=== PATIENT | female | born 1965 | race Caucasian/White ===

== ENCOUNTER 2024-12-21 08:35 | Emergency (ER) | payer OTHER, BC, SELFPAY ==
[2024-12-21 09:10] VITALS: BP 138/87; PULSE 77; RESP 19; TEMP 36.6; O2SAT 98; BMI 40.1
--- NOTE | 2024-12-21 09:18 | PC.NURSE ---
SPOKE WITH MARLYN BLACK FROM PHARMACY ABOUT LATEX ALLERGY INTERACTION WITH TDAP. MARLYN STATES OK TO GIVE.
[2024-12-21] MEDS: TET/DIPHTH/PERT-ADULT 0.5ML SYRINGE 0.5 ML IM (09:20)
--- NOTE | 2024-12-21 09:47 | ED_ITS ---
Discharge Plan Disposition Patient Disposition: Home, Self-Care Condition: Good Prescriptions Prescriptions: New amoxicillin-pot clavulanate 875-125 mg Tablet 1 tab PO Q12H 7 Days Qty: 14 0RF mupirocin 2 % ointment 1 applic topical TID 10 Days Qty: 22 0RF Rx Instructions: apply to area as directed Referrals Follow up/Referrals: Provider,Referral, MD [Primary Care Provider] - See instructions Activity Restrictions/Add. Instructions Additional Instructions/Restrictions: Clean area well with antibacterial soap and water Leave area open to air when possible at home Use topical ointment as directed Take oral antibiotics as prescribed Follow up with your Family Doctor or Podiatry if symptoms persist Clinical Impressions Clinical Impression: Foot injury Instructions Patient Instructions: DI for Abrasion, Amoxicillin and Clavulanic Acid, Mupirocin Print Language Print Language: Bulgarian Discharge ED Provider: Linda Schwartz [facility] [place] HPI General Stated complaint: needs tetanus, laceration on L ankle Mode of Arrival: Ambulatory Source of Information: Patient Limitations: No Limitations Time Seen by Provider: 12/21/24 09:47 Description of Symptoms (Recalled from Triage Doc. by RN): PATIENT C/O WOUND TO RIGHT ANKLE AFTER HITTING IT ON A DR[employer]OL[employer] DOOR AT A GAS STATION LAST NIGHT. PATIENT STATES SHE NEEDS TDAP AND POSSIBLY ANTIBIOTICS HEENT Symptoms (Recalled from RN notes): No Resp Symptoms (Recalled from RN notes): No Skin Symptoms (Recalled from RN notes): Yes MS Symptoms (Recalled from RN notes): No Functional Status (Recalled from RN notes): WNL History of Present Illness Provider Complaint: Patient states that she was at a local gas station last night and her right heel area was struck by a brian dirty door and it caused an abrasion on the back of her heel area and felt like she may have a small puncture wound States that she came in to get a tetanus shot and worried that she may need antibiotics because the door was so dirty and brian Related Data Previous Rx's ?Medication ?Instructions ?Recorded amoxicillin 875 mg-potassium 1 tab PO Q12H 7 days #14 tabs 12/21/24 clavulanate 125 mg tablet mupirocin 2 % topical ointment 1 applic topical TID 10 days #22 12/21/24 grams Allergies Allergy/AdvReac Type Severity Reaction Status Date / Time latex Allergy Rash Verified 12/21/24 09:16 Worker's Comp Is this a Worker's Comp case?: No [facility] Disclaimer: The information contained in this section may have been updated after the patient was seen, as this information can be updated by other users. Medical History (Updated 12/21/24 @ 09:57 by Linda Schwartz APRN) No significant past medical history Social History Smoking Status: Unknown if ever smoked alcohol intake: never current occupational status: employed Travel in the last 8 weeks: None ROS Obtained: Yes All systems reviewed & no additional complaints except as documented and Yes Systems reviewed as appropriate & no additional complaints except as documented Constitutional Constitutional: Reports system reviewed and no additional complaints, except as documented and Reports as per HPI ENT Ears, Nose, Mouth, and Throat: Reports system reviewed and no additional complaints, except as documented and Reports as per HPI Cardiovascular Cardiovascular: Reports system reviewed and no additional complaints, except as documented and Reports as per HPI Respiratory Respiratory: Reports system reviewed and no additional complaints, except as documented and Reports as per HPI Gastrointestinal Gastrointestingal: Reports system reviewed and no additional complaints, except as documented and as per HPI Integumentary/Breasts Skin/Breast: Reports system reviewed and no additional complaints, except as documented and Reports as per HPI Comments: abrasion and small puncture wound to back of right heel area Physical Exam General General appearance: alert and in no apparent distress Respiratory Respiratory exam: Present normal lung sounds bilaterally; Absent respiratory distress or wheezes Cardiovascular Cardiovascular exam: Present regular rate, normal rhythm and normal heart sounds Abdominal Exam Abdominal exam: Present soft and normal bowel sounds; Absent distention or tenderness Expanded Lower Extremity Exam Right: Ankle image: 2 1. abrasion noted with one area possibly small puncture wound, no active bleeding however does have some mild redness Neurological Exam Neurological exam: Present alert, oriented X3 and normal gait Medical Decision Making Medical Records Screening: Per USPSTF and CDC recommendations, given the prevalence of disease in our region, it is our hospital?s policy to screen for HIV and viral Hepatitis for all patients aged 18 and over and those with ongoing risk factors. Lakhwinder Inquiry Pt receiving controlled substance: No Lakhwinder was queried for this patient: No Vital Signs: 12/21/24 09:10 Temperature 97.8 F Temperature Source Oral Pulse Rate [Left Brachial] 77 Respiratory Rate 19 Blood Pressure [Left Arm] 138/87 Blood Pressure Mean [Left Arm] 104 Blood Pressure Source [Left Arm] Automatic Cuff Blood Pressure Position [Left Arm] Sitting 02 Sat by Pulse Oximetry 98 Oxygen Delivery Method Room Air Orders (Tests/Meds): ED MEDICATIONS Discontinued Medications Generic Name Dose Route Start Last Admin Trade Name Freq PRN Reason Stop Dose Admin Tetanus/Reduced Diphtheria/Acell Pertussis 0.5 ml 12/21/24 09:16 12/21/24 09:20 Tet/Diphth/Pert-Adult 0.5ml Syringe IM 12/21/24 09:17 0.5 ml .ONCE ONE Administration
[2024-12-21 09:58] VITALS: BP 138/87; PULSE 77; RESP 19; TEMP 36.6; O2SAT 98
== END 2024-12-21 10:04 | disposition home or self-care (01) ==
PROVIDERS: Emergency Provider Nurse Practitioner
DX: S99.921A Unspecified injury of right foot, initial encounter (principal)
CPT/HCPCS: 90471; 90715; 99213; G0381